=== PATIENT | female | born 1935 | race Caucasian/White ===

== ENCOUNTER 2019-07-08 16:11 | Emergency (ER) | payer MEDICARE ==
[2019-07-08 16:29] VITALS: BP 171/71; PULSE 93
--- NOTE | 2019-07-08 17:02 | EDM.PDOC ---
ED HPI GENERAL MEDICAL PROBLEM - General Chief Complaint: Lower Extremity Injury/Pain Stated Complaint: FALL, LEFT KNEE Time Seen by Provider: 07/08/19 16:45 Source of Information: Reports: Patient, Old Records, RN History Limitations: Reports: No Limitations - History of Present Illness INITIAL COMMENTS - FREE TEXT/NARRATIVE: 84 yo female lost her balance and fell in her home today. She landed on her L knee and was not able to get up unassisted. She called for first responders to help her get up and they in turn called EMS. EMS checked her out and suggested she come to the ER for evaluation. Uses crutches at home for balance only. Uses Tylenol Arthritis for pain relief. Onset: Today Onset Date: 07/08/19 Duration: Hour(s):, Constant Location: Reports: Lower Extremity, Left Quality: Reports: Dull Severity: Mild Improves with: Reports: Rest Worsens with: Reports: Other (touching the front of her knee on left leg) Context: Reports: Trauma Associated Symptoms: Reports: No Other Symptoms Treatments CONE FORMER: Reports: Other (see below) (none) Left Knee Pain Score (Numeric/FACES): 1 - Related Data Allergies Allergy/AdvReac Type Severity Reaction Status Date / Time acetaminophen [From NyQuil] Allergy Cannot Verified 07/08/19 16:25 Remember aspartame Allergy Abdominal Verified 07/08/19 16:36 Pain dextromethorphan Allergy Cannot Verified 07/08/19 16:25 [From NyQuil] Remember doxylamine [From NyQuil] Allergy Cannot Verified 07/08/19 16:25 Remember niacin Allergy Rash Verified 07/08/19 16:36 pseudoephedrine [From NyQuil] Allergy Rash Verified 07/08/19 16:36 shellfish derived Allergy Rash Verified 07/08/19 16:34 Home Meds: Home Meds Cholecalciferol (Vitamin D3) [Vitamin D3] 1,000 unit PO DAILY 05/12/16 [History] Cinnamon Bark [Cinnamon] 500 mg PO DAILY 05/12/16 [History] Flaxseed Oil [Flax Oil] 1,000 mg PO DAILY 05/12/16 [History] Furosemide [Lasix] 40 mg PO BID 05/12/16 [History] Levothyroxine Sodium [Synthroid] 75 mcg PO ACBREAKFAST 05/12/16 [History] Simvastatin [Zocor] 20 mg PO BEDTIME 05/12/16 [History] Spironolactone [Aldactone] 25 mg PO DAILY 05/12/16 [History] Acetaminophen [Tylenol] 650 mg PO BID PRN 07/08/19 [History] Apixaban [Eliquis] 2.5 mg PO BID 07/08/19 [History] Metoprolol Tartrate 25 mg PO BID 07/08/19 [History] Potassium Chloride 20 meq PO DAILY 07/08/19 [History] Past Medical History Cardiovascular History: Reports: Afib, High Cholesterol Other Cardiovascular History: chronic edema. Raynaud disease Musculoskeletal History: Reports: Osteoarthritis Endocrine/Metabolic History: Reports: Hypothyroidism Dermatologic History: Reports: Venous Stasis Dermatitis - Past Surgical History HEENT Surgical History: Reports: Oral Surgery, Tonsillectomy GI Surgical History: Reports: Hernia Repair/Other Musculoskeletal Surgical History: Reports: Hip Replacement, Other (See Below) Other Musculoskeletal Surgeries/Procedures:: foot surgery Social & Family History - Tobacco Use Smoking Status *Q: Never Smoker - Caffeine Use Caffeine Use: Reports: Soda, Tea - Recreational Drug Use Recreational Drug Use: No Review of Systems - Review of Systems Review Of Systems: See Below Constitutional: Reports: No Symptoms Respiratory: Reports: No Symptoms Cardiovascular: Reports: No Symptoms Musculoskeletal: Reports: Joint Pain (mild L anterior knee pain). Denies: Joint Swelling Skin: Reports: No Symptoms ED EXAM, GENERAL - Physical Exam Exam: See Below Exam Limited By: No Limitations General Appearance: Alert, WD/WN, No Apparent Distress, Obese Extremities: Normal Inspection, Normal Range of Motion, No Pedal Edema, Other ( minimal anterior L knee pain, No redness or swelling or bruising noted. Walks without a limp.). No: Non-Tender, Pedal Edema Neurological: Alert, Oriented, CN II-XII Intact, Normal Cognition, No Motor/ Sensory Deficits Psychiatric: Normal Affect, Normal Mood Skin Exam: Warm, Dry, Intact, Normal Color, No Rash Course - Vital Signs Last Recorded V/S: Last Vital Signs Temp 36.3 C 07/08/19 16:29 Pulse 93 07/08/19 16:29 Resp 16 07/08/19 16:29 BP 171/71 H 07/08/19 16:29 Pulse Ox 97 07/08/19 16:29 Departure - Departure Time of Disposition: 17:05 Disposition: Home, Self-Care 01 Condition: Good Clinical Impression: Contusion of left knee Qualifiers: Encounter type: initial encounter Qualified Code(s): S80.02XA - Contusion of left knee, initial encounter - Discharge Information *PRESCRIPTION DRUG MONITORING PROGRAM REVIEWED*: No *COPY OF PRESCRIPTION DRUG MONITORING REPORT IN PATIENT NATASHA: No Referrals: PCP,None [Primary Care Provider] - Additional Instructions: Home. Continue Tylenol Arthritis as needed. Recheck as needed. Sepsis Event Note - Evaluation Sepsis Screening Result: No Definite Risk - Focused Exam Vital Signs: Vital Signs Temp Pulse Resp BP Pulse Ox 07/08/19 16:29 36.3 C 93 16 171/71 H 97 07/08/19 16:26 36.3 C 93 16 171/71 H 97 Date Exam was Performed: 07/08/19 Time Exam was Performed: 16:56
== END 2019-07-08 17:17 | disposition home or self-care (01) ==
LOC: JP.ED 16:11
DX: S80.02XA Contusion of left knee, initial encounter (principal); I48.91 Unspecified atrial fibrillation; E78.00 Pure hypercholesterolemia, unspecified; E03.9 Hypothyroidism, unspecified; Z88.6 Allergy status to analgesic agent; Z88.8 Allergy status to other drugs, medicaments and biological substances; Z91.013 Allergy to seafood; Z79.01 Long term (current) use of anticoagulants; Z79.890 Hormone replacement therapy; Z79.899 Other long term (current) drug therapy; W01.0XXA Fall on same level from slipping, tripping and stumbling without subsequent striking against object, initial encounter; Y92.009 Unspecified place in unspecified non-institutional (private) residence as the place of occurrence of the external cause
CPT/HCPCS: 99283

== ENCOUNTER 2020-12-01 12:47 | Emergency (ER) | payer MEDICARE ==
--- NOTE | 2020-12-01 13:42 | EDM.PDOC ---
ED HPI GENERAL MEDICAL PROBLEM - General Chief Complaint: Head Injury Stated Complaint: MEDICAL [facility]IA [facility] Time Seen by Provider: 12/01/20 13:26 Source of Information: Reports: Patient, EMS, RN Notes Reviewed History Limitations: Reports: No Limitations - History of Present Illness INITIAL COMMENTS - FREE TEXT/NARRATIVE: 85-year-old female presents emergency department today via EMS services, [place] she was going to sit down to have her lunch and misjudged the chair ended up going to the ground she hit her head predominantly on the left side. She is complaining of facial pain she does take Eliquis has a history of a hairline fracture in 1 of her vertebral she is complaining of pain on her right side of her neck. No loss of consciousness no nausea vomiting - Related Data Allergies Allergy/AdvReac Type Severity Reaction Status Date / Time niacin Allergy Mild Rash Verified 12/01/20 12:56 acetaminophen [From NyQuil] Allergy Unknown Cannot Verified 12/01/20 12:56 Remember doxylamine [From NyQuil] Allergy Unknown Cannot Verified 12/01/20 12:56 Remember aspartame Allergy Abdominal Verified 12/01/20 12:56 Pain dextromethorphan Allergy Cannot Verified 12/01/20 12:56 [From NyQuil] Remember pseudoephedrine [From NyQuil] Allergy Rash Verified 12/01/20 12:56 shellfish derived Allergy Rash Verified 12/01/20 12:56 Home Meds: Home Meds Cholecalciferol (Vitamin D3) [Vitamin D3] 1,000 unit PO DAILY 05/12/16 [History] Cinnamon Bark [Cinnamon] 500 mg PO DAILY 05/12/16 [History] Flaxseed Oil [Flax Oil] 2,000 mg PO DAILY 05/12/16 [History] Furosemide [Lasix] 40 mg PO BID 05/12/16 [History] Levothyroxine Sodium [Synthroid] 75 mcg PO ACBREAKFAST 05/12/16 [History] Simvastatin [Zocor] 20 mg PO BEDTIME 05/12/16 [History] Spironolactone [Aldactone] 50 mg PO DAILY 05/12/16 [History] Acetaminophen [Tylenol] 650 mg PO BID PRN 07/08/19 [History] Apixaban [Eliquis] 5 mg PO BID 07/08/19 [History] Metoprolol Tartrate 25 mg PO BID 07/08/19 [History] Potassium Chloride 20 meq PO DAILY 07/08/19 [History] Cetirizine [ZyrTEC] 10 mg PO DAILY PRN 12/01/20 [History] tiZANidine [Zanaflex] 2 mg PO BEDTIME PRN 12/01/20 [History] Past Medical History Cardiovascular History: Reports: Afib, High Cholesterol, Hypertension Other Cardiovascular History: chronic edema. Raynaud disease Musculoskeletal History: Reports: Osteoarthritis Neurological History: Reports: Head Trauma Endocrine/Metabolic History: Reports: Hypothyroidism Dermatologic History: Reports: Venous Stasis Dermatitis - Infectious Disease History Infectious Disease History: Reports: Measles - Past Surgical History HEENT Surgical History: Reports: Oral Surgery, Tonsillectomy GI Surgical History: Reports: Hernia Repair/Other Musculoskeletal Surgical History: Reports: Hip Replacement, Other (See Below) Other Musculoskeletal Surgeries/Procedures:: foot surgery - has a plate and 4 screws Social & Family History - Tobacco Use Tobacco Use Status *Q: Never Tobacco User - Caffeine Use Caffeine Use: Reports: Soda - Recreational Drug Use Recreational Drug Use: No ED ROS GENERAL - Review of Systems Review Of Systems: See Below Constitutional: Reports: No Symptoms HEENT: Reports: No Symptoms Respiratory: Reports: No Symptoms Cardiovascular: Reports: No Symptoms GI/Abdominal: Reports: No Symptoms Musculoskeletal: Reports: Neck Pain Skin: Reports: Bruising Neurological: Reports: Headache ED EXAM, HEAD INJURY - Physical Exam Exam: See Below Exam Limited By: No Limitations General Appearance: Alert, WD/WN, No Apparent Distress Head: Normocephalic, Facial Ecchymosis, Facial Swelling, Facial Tenderness Nexus Criteria: Posterior, Midline Cervical Tenderness. No: Evidence of Intoxication, Altered Level of Consciousness, Focal Neurological Deficit, Painful Distraction Injuries Eyes: Bilateral Eye: EOMI, Normal Inspection, PERRL Respiratory: No Respiratory Distress Course - Vital Signs Last Recorded V/S: Last Vital Signs Temp 95.8 F L 12/01/20 13:21 Pulse 79 12/01/20 14:43 Resp 16 12/01/20 14:43 BP 129/65 12/01/20 14:43 Pulse Ox 97 12/01/20 14:43 Departure - Departure Time of Disposition: 15:55 Disposition: Home, Self-Care 01 Condition: Fair Clinical Impression: C2 cervical fracture Qualifiers: Encounter type: subsequent encounter Fracture type: closed Fracture morphology: unspecified fracture morphology Fracture alignment: nondisplaced Fracture healing: with routine healing Qualified Code(s): S12.101D - Unspecified nondisplaced fracture of second cervical vertebra, subsequent encounter for fracture with routine healing - Discharge Information Instructions: Head Injury, Adult, [id number] Referrals: PCP,None [Primary Care Provider] - Forms: ED Department Discharge Additional Instructions: Continue with your regular medications, use Tylenol or Motrin as needed for pain control, keep your follow-up appointment with the neurosurgeon at [facility] your films have been sent there. Call return to the emergency department worsening of symptoms Sepsis Event Note (ED) - Evaluation Sepsis Screening Result: No Definite Risk - Focused Exam Vital Signs: Vital Signs Temp Pulse Resp BP Pulse Ox 12/01/20 14:43 79 16 129/65 97 12/01/20 13:21 95.8 F L 78 18 137/66 92 L - Assessment/Plan Plan: Assessment Acuity = acute Site and laterality = head injury Etiology = fall from table Manifestations = none Location of injury = Home Lab values = CT scan describes no acute process intracranially no acute process maxillofacial he however she does have a C2 hairline fracture nondisplaced this is chronic Plan She has an appointment with neurosurgery next week [facility] for her C2 hairline fracture This note was dictated using [employer] voice recognition software please call with any questions on syntax or grammar.
[2020-12-01 14:43] VITALS: BP 129/65; PULSE 79
--- NOTE | 2020-12-01 14:46 | CT ---
Head wo Cont CLINICAL HISTORY: Trauma, fall COMPARISON: None TECHNIQUE: Transverse scans were obtained from the base of the skull through the vertex without IV contrast on a multislice, multidetector CT scanner. Auto dosage reduction and iterative reconstruction techniques employed. FINDINGS: There is moderate tilting in the gantry. There are some left basal ganglia calcifications. No focal abnormal parenchymal density is seen.. There is no mass effect, hemorrhage, or extraaxial collection. The basal cisterns and sulci over the convexities are prominent. The ventricles are prominent. IMPRESSION: No acute intracranial process Age-related atrophy
--- NOTE | 2020-12-01 14:51 | CT ---
Max Facial Sinus wo Cont : TECHNIQUE: Axial tomographic images were obtained from the upper calvarium through the upper neck, without contrast enhancement. Auto dosage reduction and iterative reconstruction techniques employed. CLINICAL HISTORY: Trauma, fall FINDINGS: Patient is moderately tilted in the gantry. The paranasal sinuses are clear. The nasal septum is midline. Nasal bones appear intact. Bony orbits appear intact. Orbital fat planes are well defined. Globes are symmetric bilaterally. There are degenerative changes of the TMJs. IMPRESSION: No fracture or hematoma
--- NOTE | 2020-12-01 15:05 | CT ---
Cervical Spine wo Cont CLINICAL HISTORY: Fall TECHNIQUE: Multiple CT sections were taken through the cervical spine in the transaxial projection. Coronal and sagittal views were reconstructed. Images were viewed at bone as well as soft tissue windows on a digital workstation. Auto dosage reduction and iterative reconstruction techniques employed. FINDINGS: In the lateral mass of C2 there is an irregularly shaped lucency extending from superior medial tibia inferior lateral. This extends into the right transversarium. Cervical vertebral body heights are maintained. There is a grade 1 retrolisthesis of C5 which is felt to be due to osteoarthritis in the facets. There is some fusion at the facets at C4-5 which may be congenital or acquired. There is moderate to the spondylosis and uncovertebral joint spurring. There is central canal stenosis at C5-6. There is bony foraminal encroachment at C3-4 bilaterally. There is bilateral neural foraminal encroachment at C5-6 and C6-7 IMPRESSION: There is a fracture through the right lateral mass of C2 extending into the right transversarium. 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
== END 2020-12-01 16:15 | disposition home or self-care (01) ==
LOC: JP.ED 12:47
DX: S12.191D Other nondisplaced fracture of second cervical vertebra, subsequent encounter for fracture with routine healing (principal); I48.91 Unspecified atrial fibrillation; E78.00 Pure hypercholesterolemia, unspecified; I10 Essential (primary) hypertension; E03.9 Hypothyroidism, unspecified; Z79.899 Other long term (current) drug therapy; Z91.013 Allergy to seafood; Z88.1 Allergy status to other antibiotic agents; Z88.8 Allergy status to other drugs, medicaments and biological substances; W18.09XA Striking against other object with subsequent fall, initial encounter
CPT/HCPCS: 70450; 70450-26; 70486; 70486-26; 72125; 72125-26; 99284-25

== ENCOUNTER 2023-08-20 23:07 | Inpatient (IN) | payer MEDICARE ==
[2023-08-21 00:27] LABS: BASOPHILS ABSOLUTE AUTO 0.07 K/uL (0.00-0.10); BASOPHILS PERCENT AUTO 0.5 % (0.1-1.3); EOSINOPHILS ABSOLUTE AUTO 0.04 K/uL (0.00-0.40); EOSINOPHILS PERCENT AUTO 0.3 % (0.0-5.4); HEMATOCRIT 37.3 % (34.3-46.0); HEMOGLOBIN 12.4 g/dL (11.2-15.5); IMMATURE GRAN ABSOLUTE AUTO 0.09 K/uL (0.00-0.23); IMMATURE GRAN PERCENT AUTO 0.7 % (0.0-0.7); LYMPHOCYTES ABSOLUTE AUTO 1.58 K/uL (0.8-3.3); LYMPHOCYTES PERCENT AUTO 11.8 % (11.4-47.7); MEAN CORPUSCULAR HEMOGLOBIN 28.9 pg (31.6-35.5); MEAN CORPUSCULAR HGB CONC 33.2 g/dL (31.6-35.5); MEAN CORPUSCULAR VOLUME 86.9 fL (81.4-99.0); MONOCYTES ABSOLUTE AUTO 1.28 K/uL (0.20-0.90); MONOCYTES PERCENT AUTO 9.5 % (3.3-12.6); NEUTROPHILS ABSOLUTE AUTO 10.36 K/uL (1.0-7.6); NEUTROPHILS PERCENT AUTO 77.2 % (40.0-78.1); PLATELET COUNT,PLT 311 K/uL (130-375); RED BLOOD CELL COUNT 4.29 M/uL (3.77-5.24); WHITE BLOOD CELL COUNT,WBC 13.4 K/uL (3.2-11.0)
[2023-08-21 00:51] LABS: A/G RATIO 0.9 (1.2-2.2); ALANINE AMINOTRANSFERASE,ALT 19 U/L (12-78); ALBUMIN 3.7 g/dL (3.4-5.0); ALKALINE PHOSPHATASE 105 U/L (46-116); ASPARTATE AMNIOTRANSFERASE,AST 30 U/L (15-37); BILIRUBIN TOTAL 0.5 mg/dL (0.2-1.0); BLOOD UREA NITROGEN,BUN 27 mg/dL (7-18); CALCIUM 9.8 mg/dL (8.5-10.1); CARBON DIOXIDE,CO2 25 mmol/L (21-32); CHLORIDE,CL 97 mmol/L (100-108); CREATININE 1.1 mg/dL (0.6-1.0); ESTIMATED GFR 49 mL/min (>60); GLUCOSE RANDOM 115 mg/dL (74-106); POTASSIUM,K 3.9 mmol/L (3.6-5.2); PROTEIN TOTAL,TP 7.7 g/dL (6.4-8.2); SODIUM,NA 135 mmol/L (140-148)
[2023-08-21 00:53] LABS: ANION GAP 16.9 mmol/L (5.0-14.0)
[2023-08-21 00:56] LABS: INR 1.2; PROTHROMBIN TIME 12.4 sec (9.2-10.6)
[2023-08-21 01:03] LABS: LACTIC ACID 2.1 mmol/L (0.4-2.0)
[2023-08-21 02:37] LABS: APPEARANCE,URINE CLOUDY (CLEAR); BILIRUBIN,URINE NEGATIVE (NEGATIVE); COLOR,URINE YELLOW (YELLOW); GLUCOSE,URINE NEGATIVE (NEGATIVE); KETONES,URINE NEGATIVE (NEGATIVE); LEUKOCYTE ESTERASE,URINE LARGE (NEGATIVE); NITRITE,URINE NEGATIVE (NEGATIVE); OCCULT BLOOD,URINE TRACE-INTACT (NEGATIVE); PH,URINE 7.5 (5.0-8.0); PROTEIN,URINE TRACE mg/dL (NEGATIVE); UROBILINOGEN,URINE 0.2 EU/dL (0.2-1.0)
[2023-08-21 02:39] LABS: AMORPHOUS SEDIMENT,URINE NOT SEEN; BACTERIA,URINE MANY; EPITHELIAL CELLS,URINE RARE; MUCUS,URINE NOT SEEN; RBC,URINE 0-5 (0-5); WBC,URINE >100 (0-5)
[2023-08-21 03:02] LABS: CORONAVIRUS COVID-19 NAA NEGATIVE (NEGATIVE); INFLUENZA A NAA NEGATIVE (NEGATIVE); INFLUENZA B NAA NEGATIVE (NEGATIVE); RESPIRATORY SYNCYTIAL VIR NAA NEGATIVE (NEGATIVE)
[2023-08-21] MEDS ORDERED: Sodium Chloride 0.9% 10 ML Syringe FLUSH PRN (03:22)
[2023-08-21] MEDS: Sodium Chloride 0.9% 1,000 ML IV SCH (04:52)
[2023-08-21] MEDS: cefTRIAXone 1 GM in Sodium Chloride 0.9% 50 ML IV SCH (04:52)
[2023-08-21] MEDS ORDERED: Ondansetron 4 MG/2 ML SDV IV PRN (05:16)
[2023-08-21] MEDS ORDERED: Sennosides/Docusate Sodium 50-8.6 MG Tab PO PRN (05:16)
[2023-08-21] MEDS ORDERED: Melatonin 3 MG Tab PO PRN (05:16)
[2023-08-21] MEDS ORDERED: Ondansetron 4 MG Tab.DIS PO PRN (05:16)
[2023-08-21] MEDS ORDERED: Magnesium Hydroxide 400 MG/5 ML Susp 30 ML Cup PO PRN (05:16)
[2023-08-21] MEDS: Sodium Chloride 0.9% 500 ML IV ONE (05:51)
[2023-08-21] MEDS: Lactobacillus Rhamnosus GG (Probiotic) Cap PO SCH (09:11)
[2023-08-21] MEDS ORDERED: Cetirizine 10 MG Tab PO PRN (15:25)
[2023-08-21] MEDS: Acetaminophen 325 MG Tab PO PRN (18:02)
[2023-08-21] MEDS ORDERED: Non-Formulary Medication 1 Each (Simvastatin [Zocor] 40 MG Tablet) PO SCH (21:00)
[2023-08-21] MEDS: Apixaban 5 MG Tab PO SCH (21:05)
[2023-08-21] MEDS: Metoprolol Tartrate 25 MG Tab PO SCH (21:05)
[2023-08-21] MEDS: atorvaSTATin 10 MG Tab PO SCH (21:06)
[2023-08-22 06:05] LABS: HEMATOCRIT 31.5 % (34.3-46.0); HEMOGLOBIN 10.4 g/dL (11.2-15.5); MEAN CORPUSCULAR HEMOGLOBIN 29.1 pg (31.6-35.5); RED BLOOD CELL COUNT 3.58 M/uL (3.77-5.24); WHITE BLOOD CELL COUNT,WBC 7.9 K/uL (3.2-11.0)
[2023-08-22 06:15] LABS: CALCIUM 8.6 mg/dL (8.5-10.1); CREATININE 0.8 mg/dL (0.6-1.0); EST CRCL DRUG DOSING (CG) 39.92 mL/min; POTASSIUM,K 3.7 mmol/L (3.6-5.2)
[2023-08-22 06:21] LABS: ANION GAP 10.7 mmol/L (5.0-14.0)
[2023-08-22] MEDS: Levothyroxine 25 MCG Tab PO SCH (07:13)
[2023-08-22] MEDS ORDERED: Non-Formulary Medication 1 Each (Levothyroxine Sodium [Synthroid] 75 MCG Tablet) PO SCH (09:00)
[2023-08-22] MEDS: Spironolactone 25 MG Tab PO SCH (09:21)
[2023-08-23] MEDS: cefTRIAXone 1 GM in Sodium Chloride 0.9% 50 ML IV SCH (03:26)
[2023-08-23] MEDS ORDERED: Nitrofurantoin Monohydrate/Macrocrystalline 100 MG Cap PO SCH (09:00)
[2023-08-23] MEDS: ceFAZolin 1 GM in Premix Bag 1 BAG IV SCH (13:55)
[2023-08-25 04:53] LABS: HEMOGLOBIN 10.4 g/dL (11.2-15.5); MEAN CORPUSCULAR HEMOGLOBIN 29.1 pg (31.6-35.5); MEAN CORPUSCULAR HGB CONC 33.5 g/dL (31.6-35.5); MEAN CORPUSCULAR VOLUME 86.8 fL (81.4-99.0); RED BLOOD CELL COUNT 3.57 M/uL (3.77-5.24); WHITE BLOOD CELL COUNT,WBC 8.9 K/uL (3.2-11.0)
[2023-08-25 05:11] LABS: C-REACTIVE PROTEIN 1.75 mg/dL (<0.50); CALCIUM 8.9 mg/dL (8.5-10.1); CREATININE 0.7 mg/dL (0.6-1.0); EST CRCL DRUG DOSING (CG) 45.63 mL/min; POTASSIUM,K 4.4 mmol/L (3.6-5.2)
[2023-08-25 05:13] LABS: ANION GAP 13.4 mmol/L (5.0-14.0)
[2023-08-26] MEDS: Cephalexin 250 MG Cap PO SCH (09:04)
[2023-08-26 11:12] VITALS: BP 117/64; PULSE 73
== END 2023-08-26 12:10 | DRG 603 ==
LOC: JP.ED 23:07 → JP.MS 08-21 03:19
PROVIDERS: ADMIT Internal Medicine; ATTEND Internal Medicine
DX: R53.1 Weakness (principal); L03.115 Cellulitis of right lower limb; N30.00 Acute cystitis without hematuria; N17.9 Acute kidney failure, unspecified; I83.214 Varicose veins of right lower extremity with both ulcer of heel and midfoot and inflammation; L97.419 Non-pressure chronic ulcer of right heel and midfoot with unspecified severity; N10 Acute pyelonephritis; B95.61 Methicillin susceptible Staphylococcus aureus infection as the cause of diseases classified elsewhere; I83.893 Varicose veins of bilateral lower extremities with other complications; Z88.8 Allergy status to other drugs, medicaments and biological substances; M19.90 Unspecified osteoarthritis, unspecified site; E78.00 Pure hypercholesterolemia, unspecified; I73.00 Raynaud's syndrome without gangrene; M40.209 Unspecified kyphosis, site unspecified; I27.20 Pulmonary hypertension, unspecified; Z96.49 Presence of other endocrine implants; W19.XXXA Unspecified fall, initial encounter; I10 Essential (primary) hypertension; E03.9 Hypothyroidism, unspecified; I48.0 Paroxysmal atrial fibrillation; R53.81 Other malaise; E86.0 Dehydration; Z91.013 Allergy to seafood; Z90.89 Acquired absence of other organs; Z98.890 Other specified postprocedural states; Z79.899 Other long term (current) drug therapy; Z79.01 Long term (current) use of anticoagulants
CPT/HCPCS: 0241U; 36415; 70450; 71250; 73502-26-RT; 73502-RT; 73562-RT; 80048; 80053; 81001; 83605; 85025; 85027; 85610; 86140; 87086; 87088; 87186; 97110-GP; 97161-GP; 97165-GO; 97530-GP; 99222; 99232; 99239; 99285; A9270-GY; J0690; J0696; J3490; J7030

== ENCOUNTER 2024-03-14 21:19 | Emergency (ER) | payer MEDICARE ==
[2024-03-14 21:26] VITALS: BP 119/78
[2024-03-14] MEDS ORDERED: Iopamidol 612 MG/ML 100 ML Bottle IV SCH (22:00)
[2024-03-14] MEDS ORDERED: Sodium Chloride 0.9% 60 ML IV SCH (22:00)
[2024-03-14 22:13] VITALS: PULSE 86
[2024-03-14 22:21] LABS: BASOPHILS ABSOLUTE AUTO 0.08 K/uL (0.00-0.10); BASOPHILS PERCENT AUTO 0.6 % (0.1-1.3); EOSINOPHILS ABSOLUTE AUTO 0.08 K/uL (0.00-0.40); EOSINOPHILS PERCENT AUTO 0.6 % (0.0-5.4); HEMATOCRIT 39.7 % (34.3-46.0); HEMOGLOBIN 13.2 g/dL (11.2-15.5); IMMATURE GRAN ABSOLUTE AUTO 0.06 K/uL (0.00-0.23); IMMATURE GRAN PERCENT AUTO 0.4 % (0.0-0.7); LYMPHOCYTES ABSOLUTE AUTO 1.76 K/uL (0.8-3.3); LYMPHOCYTES PERCENT AUTO 13.1 % (11.4-47.7); MEAN CORPUSCULAR HEMOGLOBIN 29.4 pg (31.6-35.5); MEAN CORPUSCULAR HGB CONC 33.2 g/dL (31.6-35.5); MEAN CORPUSCULAR VOLUME 88.4 fL (81.4-99.0); MONOCYTES ABSOLUTE AUTO 2.19 K/uL (0.20-0.90); MONOCYTES PERCENT AUTO 16.3 % (3.3-12.6); PLATELET COUNT,PLT 224 K/uL (130-375); RED BLOOD CELL COUNT 4.49 M/uL (3.77-5.24); WHITE BLOOD CELL COUNT,WBC 13.5 K/uL (3.2-11.0)
[2024-03-14 22:36] LABS: CALCIUM 9.9 mg/dL (8.5-10.1); CREATININE 0.8 mg/dL (0.6-1.0); EST CRCL DRUG DOSING (CG) 39.58 mL/min
[2024-03-15] MEDS: Sodium Chloride 0.9% 10 ML Syringe FLUSH ONE (00:13)
== END 2024-03-15 01:01 | disposition home or self-care (01) ==
LOC: JP.ED 21:19
DX: K04.7 Periapical abscess without sinus (principal); I48.91 Unspecified atrial fibrillation; E78.00 Pure hypercholesterolemia, unspecified; E03.9 Hypothyroidism, unspecified; I10 Essential (primary) hypertension; Z79.899 Other long term (current) drug therapy; Z91.013 Allergy to seafood; Z91.018 Allergy to other foods; Z88.8 Allergy status to other drugs, medicaments and biological substances; Z88.6 Allergy status to analgesic agent; Z88.3 Allergy status to other anti-infective agents
CPT/HCPCS: 36415; 70491; 80048; 85025; 99283; 99284